=== PATIENT | female | born 1945 | race Caucasian/White ===

== ENCOUNTER 2020-12-12 10:54 | Inpatient (IN) | payer MEDICARE ==
[~2020-12-12] VITALS: Ht 172.7 cm; Wt 103.9 kg
[2020-12-12 10:56] VITALS: BP 195/78
[2020-12-12 12:12] LABS: ABSOLUTE NEUTROPHILS 6.7 thou/uL (1.4-8.2); BASOPHILS 0.1 % (0.0-2.0); EOSINOPHILS 0.1 % (0.0-3.0); HEMATOCRIT 39.9 % (37.0-47.0); HEMOGLOBIN 13.4 gm/dL (12.0-15.0); LYMPHOCYTES 5.6 % (24.0-44.0); MCH 29.4 pg (26.0-34.0); MCHC 33.6 g/dL (28.0-37.0); MCV 87.5 fL (80.0-100.0); MONOCYTES 5.2 % (1.0-8.0); PLATELET COUNT 214 thou/uL (150-400); RBC 4.55 mil/uL (4.20-5.00); RDW 12.6 % (10.5-14.5); WBC 7.6 thou/uL (4.0-11.0)
[2020-12-12 12:15] LABS: CALCIUM 9.7 mg/dL (8.5-10.1); CREATININE 1.3 mg/dL (0.6-1.0); POTASSIUM 4.4 mmol/L (3.5-5.1)
[2020-12-12 12:21] LABS: ALBUMIN 3.9 g/dL (3.4-5.0); TOTAL BILIRUBIN 1.2 mg/dL (0.2-1.0); TOTAL PROTEIN 7.6 g/dL (6.4-8.2)
[2020-12-12 12:24] LABS: URINE BILIRUBIN NEGATIVE (Negative); URINE BLOOD TRACE (Negative); URINE CLARITY CLEAR; URINE COLOR YELLOW; URINE GLUCOSE-RANDOM* NEGATIVE (Negative); URINE KETONES NEGATIVE (Negative); URINE LEUKOCYTES-REFLEX NEGATIVE (Negative); URINE NITRITE-REFLEX NEGATIVE (Negative); URINE PROTEIN (DIPSTICK) 1+ (Negative); URINE SPECIFIC GRAVITY 1.015 (1.005-1.035); URINE UROBILINOGEN 0.2 E.U./dl (0.2-1.0)
[2020-12-12 12:43] LABS: SQUAMOUS 0-3 Few /LPF (0-3)
[2020-12-12 12:44] LABS: BACTERIA-REFLEX 1-9 Few /HPF (None Seen); CASTS None Seen /LPF (None Seen); CRYSTALS None Seen /LPF (None Seen); URINE RBC 0-2 Rare /HPF (0-2); URINE WBC-REFLEX None Seen /HPF (0-5)
[2020-12-12 14:15] VITALS: BP 187/79
[2020-12-12] MEDS ORDERED: CALCIUM500 MG PO (15:26)
[2020-12-12] MEDS ORDERED: METOPROLOL TART25 MG PO (15:27)
[2020-12-12] MEDS ORDERED: VITAMIN C100 MG PO (15:28)
[2020-12-12] MEDS ORDERED: LIPITOR20 MG PO (15:28)
[2020-12-12] MEDS ORDERED: ONE-A-DAY WOMENS PO (15:29)
[2020-12-12 15:52] VITALS: BP 140/63
[2020-12-12 16:17] VITALS: BP 135/60
[2020-12-12 17:40] LABS: FOLIC ACID 66.4 ng/mL (8.6-58.9)
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
[2020-12-12 19:38] VITALS: BP 180/95
[2020-12-13 00:21] VITALS: BP 198/90
--- NOTE | 2020-12-13 04:14 | NUR ---
ASSUMED CARE OF PT AT SHIFT CHANGE. PT IS AOX1-2 AND NEEDS MUST BE ANTICIPATED. FALL PRECAUTION IN PLACE. PT IS INCONTINENT AND AN EXTERNAL FEMALE CATH WAS PLACED. PT DENIED PAIN, NAUSEA OR SOA. PT RUNS SR ON TELE. IVF CONTINUED. PT HAD ELEVATED BP; LOW PRESSURE KETTLE OPERATOR NOTIFIED; ORDER RECEICVED AND ADMINISTERED. PT WAS ABLE TO GET COMFORTABLE AND SLEEP PART OF THE SHIFT. WILL CONTINUE TO MONITOR.
[2020-12-13 04:23] VITALS: BP 166/84
[2020-12-13 06:00] LABS: HEMATOCRIT 39.6 % (37.0-47.0); MCH 28.9 pg (26.0-34.0); MCV 87.7 fL (80.0-100.0); RBC 4.51 mil/uL (4.20-5.00); RDW 12.9 % (10.5-14.5); WBC 5.2 thou/uL (4.0-11.0)
[2020-12-13 06:07] LABS: CALCIUM 9.1 mg/dL (8.5-10.1); CREATININE 1.3 mg/dL (0.6-1.0); POTASSIUM 3.7 mmol/L (3.5-5.1)
[2020-12-13 07:19] VITALS: BP 133/70
--- NOTE | 2020-12-13 13:51 | NUR ---
PT ADMITTED RELATED TO AMS, UTI, AND PYELONEPHRITIS. CM REVIEWED CHART AND SPOKE WITH CARE TEAM. CM MET WITH PT AT BEDSIDE THIS DAY. PT APPEARED TO BE A&O X4. CM ROLE INTRODCUED. PT INDICATED SHE LIVES ALONE IN A HOUSE WITH A RAMP TO ENTER AND NO STEPS SHE USES INSIDE. PT INDICATED SHE HAD BEEN INDEPEDNENT WITH GAIT AND [facility]LS MEDICAL ASSISTANT OB GYN. 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 PT INDICATED SHE HAD A FWW FOR HOME USE. PT INDICATED NO HH OR SKILLED HISTORY. PT INDICATED THAT HER PCP IS DR. JANNA RUTHERFORD. PT'S FRIENDS AND GDTR ARE HER CONTACTS. PT INDICATED SHE ANTICIPATES RETURNING HOME ONCE MEDICALLY STABLE. CM FOLLOWING REGARDING DC PLANNING.
[2020-12-13 15:00] VITALS: BP 138/70
--- NOTE | 2020-12-13 15:09 | NUR ---
ASSUMED CARE OF PT AT 0700 THIS MORNING. PT WAS ADMITTED FROM ER WITH UTI AND IS A/OX2 WITH CONFUSION. PT HAS CONFIDENTIAL STATUS AND MARLYN IS THE ONLY VISITOR ALLOWED AT THIS TIME. PT HAS PERICARE IN PLACE AND PLACED ON SUCTION WITH RUSSELL COLORED URINE. SKIN IS INTACT WITH NO TENTING AND W/D/P. LUNGS ARE CLEAR IN ALL AGUILA, CR<3SEC X4, ABD SOFT NONTENDER WITH ACTIVE BOWEL SOUNDS. IV PLACED IN RIGHT AC. ASSESSMENT OTHERWISE UNREMARKABLE.CALL LIGHT AND OTHER NEEDS PLACED WITHIN REACH.
[2020-12-13 20:42] VITALS: BP 141/72
--- NOTE | 2020-12-14 02:44 | NUR ---
ASSUMED CARE OF PT AT SHIFT CHANGE. PT IS AOX2 AND NEEDS MUST BE ASSUMED. FALL PRECAUTION IN PLACE. PT DENIED PAIN, NAUSEA OR SOA. IVF CONTINUED. EXTERNAL FEMALE CATH IN PLACE. ASSESSMENT CHARTED. PT WAS ABLE TO GET COMFORTABLE AND SLEEP PART OF THE SHIFT. VSS AND NO S/S OF ACUTE DISTRESS. WILL CONTINUE TO MONITOR.
[2020-12-14 07:43] VITALS: BP 199/88
[2020-12-14 10:24] VITALS: BP 143/53
--- NOTE | 2020-12-14 12:27 | NUR ---
ASSUMED PT CARE THIS AM. PT A&OX4 THIS AM. HAD AN ELEVATED BP THIS AM, DECREASED WHEN RECHECKED, PHYSICIAN MADE AWARE. TREMORS NOTED IN HEAD, PATIENT REPORTING THIS HAS BEEN AN ONGOING TREMOR. DISCOLORATION NOTED IN BILATERAL LOWER EXTREMETIES. REPORTING NO PAIN. REPORTED NAUSEA THIS AM THAT RESOLVED WHEN GIVEN ZOFRAN PER EMAR. COUGH NOTED ON ASSESSMENT, HAS DECREASED IN FREQUENCY SINCE. IV PATENT, FLUIDS INFUSING. ON ROOM AIR. ABLE TO MAKE ALL NEEDS KNOWN. PATIENT ON TELE. FALL PRECAUTIONS ARE IN PLACE. HYDRATION ENCOURAGED.
--- NOTE | 2020-12-14 16:06 | NUR ---
CM HAD EXTENSIVE CONVERSATION WITH PT'S LIFE LONG FRIEND MARLYN THIS AFTERNOON. SHE GAVE FURTHER DETAILS ABOUT PT'S CONCERNING HOME ENVIRONMENT. CM INDICATED THAT PT HAD INDICATED THAT SHE FELT SAFE TO RETURN HOME ONCE MEDICALLY STABLE AND THAT THAT WAS HER PLAN. CM INDICATED THAT CM COULD PROVIDE MARLYN WITH NUMBER FOR [employer] FOR HOTLINE CALL BUT SHE INDICATED THAT SHE HAS THE NUMBER AND THAT SHE HAD CALLED THE POLICE BEFORE. CM INDICATED THAT CM CAN HOTLINE UPON DC WELL. CM TO NOTIFY MARLYN OF DC AND DESTINATION. CM FOLLOWING REGARDING DC PLANNING.
[2020-12-14 19:28] VITALS: BP 151/72
--- NOTE | 2020-12-15 02:48 | NUR ---
PT CARE ASSUMED WITH PT IN BED WATCHING TV AT SHIFT CHANGE.PT IS A/O X4.PT IS UP TO BATHROOM WITH X1 ASSIST AND WALKER WITH GAIT BELT.PT HAS SOME REDNESS ON BLE AND EDEMA.IV ACCESS ON RT AC WITH NS AT 100CC/HR.PT DENIED PAIN,N/V.PT APPEARED TO BE IN NO ACUTE DISTRESS.WILL CONTINUE TO MONITOR
[2020-12-15 07:30] VITALS: BP 181/89
[2020-12-15 08:33] VITALS: BP 160/72
[2020-12-15 11:35] LABS: CALCIUM 8.9 mg/dL (8.5-10.1); CREATININE 1.2 mg/dL (0.6-1.0); MAGNESIUM 1.8 mg/dL (1.8-2.4); POTASSIUM 3.7 mmol/L (3.5-5.1)
[2020-12-15] MEDS ORDERED: ACETAMINOPHEN325 M1 PO (13:09)
[2020-12-15] MEDS ORDERED: CEFUROXIME500 MG PO (13:09)
[2020-12-15 13:27] VITALS: BP 160/72
--- NOTE | 2020-12-15 13:27 | NUR ---
CARE TEAM INDICATED THAT PT IS MEDICALLY STABLE TO DC HOME THIS DAY. CARE TEAM RECOMMENDED PT HAVE OP THERAPY. CM SPOUSE WITH PT AT BEDSIDE THIS DAY AND PT INDICATED THAT SHE DOSEN'T WANT ANY HH OR OP THEARAPY UPON DC. PT INDICATED THAT SHE IS INDEPENDENT AND DOENS'T FEEL THAT SHE WILL NEED ANYTHING. CM NOTIFIED PHYSICIAN. CM TO NOTIFY PT'S FRIEND MARLYN OF DC. PT'S GDTR IS TO PROVIDE TRNASPORT HOME THIS DAY. NO OTHER CM INTERVENTION INDICATED. CASE CLOSED.
--- NOTE | 2020-12-15 15:11 | NUR ---
PT ALERT AND ORIENTED TIMES FOUR. VSS, IVF INFUSING PER ORDER. SR ON TELE. PT DENIES PAIN/SOA. PT UP WITH STANDBY ASSIST. PT TOLERATES MEDS AND MEALS. PLANS TO GO HOME TODAY. PT PROGRESSING TOWRADS POC GOALS.
== END 2020-12-15 15:20 | disposition home or self-care (01) | DRG 871 ==
LOC: ER 10:54 → 4W 14:14 → EROBS 14:14 → 4W 16:03
PROVIDERS: Emergency Medicine Emergency Medical Services; Internal Medicine; ADMIT Hospitalist; ATTEND Hospitalist
DX: A41.9 Sepsis, unspecified organism (principal); G92 Toxic encephalopathy; N17.0 Acute kidney failure with tubular necrosis; N12 Tubulo-interstitial nephritis, not specified as acute or chronic; G25.0 Essential tremor; R53.81 Other malaise; N39.41 Urge incontinence; I87.8 Other specified disorders of veins; E78.5 Hyperlipidemia, unspecified; I10 Essential (primary) hypertension; E66.01 Morbid (severe) obesity due to excess calories; Z68.34 Body mass index [BMI] 34.0-34.9, adult; Z79.899 Other long term (current) drug therapy
CPT/HCPCS: 10045